=== PATIENT | female | born 1960 | race Caucasian/White ===

== ENCOUNTER → 2016-08-28 | Outpatient (CLI) | payer BC ==
[~2016-08-28] MED LIST: EXCEDRIN1 TAB PO; MOTRIN 200200 MG/TAB PO; MULTIPLE VITAMI1 CAP PO; PRIMPRO; PROGESTERONE50 MG/M1 PO; [UNRECOGNIZED DRUG - OTHER] PO
== END ==
LOC: MC.RAD 10:52
DX: Z12.31 Encounter for screening mammogram for malignant neoplasm of breast (principal); R92.0 Mammographic microcalcification found on diagnostic imaging of breast

== ENCOUNTER → 2017-09-12 | Outpatient (CLI) | payer BC ==
[2017-09-12 15:09] LABS: C-REACTIVE PROTEIN < 0.5 mg/dL (0.0-0.9); URIC ACID 4.7 mg/dL (2.5-6.2)
[2017-09-13 00:12] LABS: RHEUMATOID FACTOR-SCREEN <15 IU/mL (0-29)
== END ==
LOC: COL.LAB 14:26
PROVIDERS: Orthopaedic Surgery Sports Medicine
DX: M79.602 Pain in left arm (principal); M79.601 Pain in right arm

== ENCOUNTER → 2017-10-09 | Outpatient (CLI) | payer BC | LOC: MC.RAD 13:54 | DX: Z12.31 Encounter for screening mammogram for malignant neoplasm of breast (principal) ==

== ENCOUNTER → 2018-12-08 | Outpatient (CLI) | payer BC | LOC: MC.RAD 11-07 10:45 | DX: Z12.31 Encounter for screening mammogram for malignant neoplasm of breast (principal) ==

== ENCOUNTER → 2020-01-14 | Outpatient (CLI) | payer BC | LOC: MC.RAD 09:05 | DX: Z12.31 Encounter for screening mammogram for malignant neoplasm of breast (principal) ==

== ENCOUNTER → 2020-09-21 | Outpatient (CLI) | payer BC ==
[2020-09-21 16:00] LABS: CLOSTRIDIUM DIFF A/B NEG; CLOSTRIDIUM DIFF A/B INTERP No C.diff present
== END ==
LOC: COL.LAB
PROVIDERS: Internal Medicine
DX: R19.7 Diarrhea, unspecified (principal)

== ENCOUNTER → 2022-01-10 | Outpatient (CLI) | payer OTHER | LOC: MC.RAD 09:24 | DX: Z12.31 Encounter for screening mammogram for malignant neoplasm of breast (principal) ==

== ENCOUNTER → 2024-05-19 | Outpatient (CLI) | payer OTHER ==
[~2024-05-19] MED LIST changes: +PEPCID 20MG TAB20 MG PO
== END ==
LOC: MC.RAD 07:27
DX: Z12.31 Encounter for screening mammogram for malignant neoplasm of breast (principal)